=== PATIENT | male | born 1975 | race Caucasian/White ===

== ENCOUNTER → 2019-10-29 | Outpatient (CLI) | payer BC ==
--- NOTE | 2019-10-29 11:19 | MRI ---
EXAM DESCRIPTION: Cervical Spine: MRI. CLINICAL HISTORY: 44 years Male CERVICAL RADICULOPATHY. Pain and numbness down left arm and leg. COMPARISON: None. TECHNIQUE: Multiplanar, high-field MRI, multiple sequences, non-contrast Cervical spine. FINDINGS: C3-C4: Minimal disc space loss with disc desiccation and small posterior bulge. Inferior C3 endplate erosion. Uncinate spur on the right. Right neural foraminal stenosis. Left neuroforamen patent. Facet joints are negative. Mild canal narrowing to the right of midline. C4-C5: Normal signal in the disc with disc space preserved. Tiny disc bulge to the left of midline. Canal patent. Mild narrowing left neural foramen. Canal and right neuroforamen patent. Facets are negative. Normal signal in the remaining discs with no bulging. Disc spaces preserved. Canal and neural foramina are patent. Facet joints are negative. Spinal alignment anatomic. No cord compression or cord edema. Atlantoaxial joint unremarkable.. Base of the cerebellar tonsils is above the foramen magnum. Paravertebral soft tissues negative. Vertebral bodies are not compressed at any level. Otherwise normal marrow signal in the remaining vertebral bodies and the posterior elements. IMPRESSION: 1. Right posterior bulge of the C3-C4 disc with uncinate spur on the right and right neural foraminal stenosis. Correlate for right C4 radiculopathy. Inferior C3 endplate erosion. 2. Tiny C4-C5 disc bulge of the left of midline with mild narrowing of the left neural foramen but no nerve impingement. Electronically signed by: Quan Ramos MD 10/29/2019 11:18 AM CDT
== END ==
LOC: MRI 06:52
PROVIDERS: ATTEND General Practice
DX: M54.12 Radiculopathy, cervical region (principal); M50.91 Cervical disc disorder, unspecified, high cervical region; M25.78 Osteophyte, vertebrae; M48.02 Spinal stenosis, cervical region